=== PATIENT | male | born 1975 ===

== ENCOUNTER 2017-01-20 07:40 | Emergency (ER) | payer OTHER ==
[2017-01-20 08:03] VITALS: BMI 25.0
[2017-01-20] MEDS ORDERED: Sodium Chloride 0.9% 1,000 ML IV STA ×2 (08:03→10:57)
[2017-01-20 08:44] LABS: BASO % 0.3 % (0.0-2.0); EOS # 0.1 K/uL (0.0-0.7); EOS % 1.2 % (0.0-4.0); HEMATOCRIT 47.4 % (35.0-51.0); LYMPH # 1.6 K/uL (1.0-4.3); LYMPH % 21.1 % (20.0-40.0); MEAN CELL VOLUME 87.9 fl (80.0-94.0); MEAN CORPUSCULAR HEMOGLOBIN 29.4 pg (27.0-31.0); MEAN CORPUSCULAR HGB CONC 33.5 g/dL (33.0-37.0); MONO # 0.4 K/uL (0.0-0.8); MONO % 5.3 % (0.0-10.0); NEUT # 5.5 K/uL (1.8-7.0); NEUT % 72.1 % (50.0-75.0); RED CELL DISTRIBUTION WIDTH 14.3 % (11.5-14.5); WHITE BLOOD COUNT 7.6 K/uL (4.8-10.8)
[2017-01-20 08:51] LABS: ALB/GLOB RATIO 1.4 (1.0-2.1); ALKALINE PHOSPHATASE 44 U/L (38-126); ALT/SGPT 47 U/L (21-72); AST/SGOT 34 U/L (17-59); BILIRUBIN,TOTAL 0.7 mg/dl (0.2-1.3); BLOOD UREA NITROGEN 20 mg/dl (9-20); CALCIUM 9.4 mg/dL (8.4-10.2); CARBON DIOXIDE 29 mmol/L (22-30); CHLORIDE 104 mmol/L (98-107); GFR AFRICAN-AMERICAN > 60; GLUCOSE,RANDOM 118 mg/dL (75-110); POTASSIUM 4.9 MMOL/L (3.6-5.0); SODIUM 143 mmol/l (132-148)
[2017-01-20 09:30] LABS: RBC URINE 1 /hpf (0-3); WBC URINE < 1 /hpf (0-5)
[2017-01-20 09:33] LABS: URINE BILIRUBIN NEGATIVE (NEGATIVE); URINE COLOR LIGHT YELLOW (YELLOW); URINE GLUCOSE (UA) NEGATIVE (Normal); URINE KETONE NEGATIVE (NEGATIVE)
[2017-01-20 09:34] LABS: PH,URINE 7.5 (5.0-8.0); URINE BLOOD NEGATIVE (NEGATIVE); URINE LEUKOCYTE ESTERASE NEGATIVE Leu/uL (Negative); URINE PROTEIN NEGATIVE (NEGATIVE); URINE UROBILINOGEN 0.2 mg/dL (0.2-1.0)
[2017-01-20 10:44] VITALS: TEMP 97; O2SAT 100
--- NOTE | 2017-01-20 10:51 | CT ---
PROCEDURE: CT Abdomen and Pelvis without intravenous contrast HISTORY: R flank RLQ pain COMPARISON: Helical CT of the abdomen and pelvis was performed without oral or intravenous contrast as per referring physician request. TECHNIQUE: Technique. Contrast Dose: None Radiation dose: Total exam DLP = 1076.81 mGy-cm. This CT exam was performed using one or more of the following dose reduction techniques: Automated exposure control, adjustment of the mA and/or kV according to patient size, and/or use of iterative reconstruction technique. FINDINGS: LOWER THORAX: Small hiatal hernia is appreciated with the lung bases otherwise unremarkable. LIVER: A tiny sub cm lucency is seen at the left lobe liver too small to characterize. GALLBLADDER AND BILE DUCTS: Unremarkable. PANCREAS: Unremarkable. No gross lesion or ductal dilatation. SPLEEN: Unremarkable. ADRENALS: Unremarkable. No mass. KIDNEYS AND URETERS: A 2.5 mm calculus obstructs the right ureteropelvic junction/distal right ureter causing limited right perirenal reaction a mild right hydroureteronephrosis. A punctate nonobstructing intrarenal calculus is seen at the lower pole right kidney. No obstructive uropathy left kidney although punctate intrarenal calcified at the midpole left kidney. There is also a the 2.5 cm simple cyst at the upper pole left kidney. VASCULATURE: Unremarkable. No aortic aneurysm. BOWEL: Unremarkable. No obstruction. No gross mural thickening. APPENDIX: Unremarkable. Normal appendix. PERITONEUM: Unremarkable. No free fluid. No free air. LYMPH NODES: Unremarkable. No enlarged lymph nodes. BLADDER: Unremarkable. REPRODUCTIVE: Unremarkable. BONES: No acute fracture. OTHER FINDINGS: None. IMPRESSION: A 2.5 mm calculus obstructs the right ureteropelvic junction/distal right ureter causing limited right appearing perirenal reaction a mild right hydroureteronephrosis. Solitary punctate intrarenal calculi identified bilaterally, nonobstructive, as discussed above. Lesser findings as discussed above.
[2017-01-20] MEDS ORDERED: Morphine 4 MG/ML VIAL ONE (11:06)
[2017-01-20] MEDS ORDERED: Lidocaine 150 MG in Sodium Chloride 0.9% 100 ML IV STA (11:38)
--- NOTE | 2017-01-20 14:33 | ED PDOC ---
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 denies: Diarrhea Exacerbating Factors: None Alleviating Factors: None Additional Complaint(s): 41yo male hx renal colic many years ago presents w sudden onset R flank pain radiating to R groin and abdomen sudden onset around 6am this morning. Denies fever, hematuria, prior nausea/vomiting/diarrhea or other complaint. Past Medical History Reviewed: Historical Data, Nursing Documentation, Vital Signs Vital Signs: Last Vital Signs Temp 97 F L 01/20/17 08:02 Pulse 64 01/20/17 12:54 Resp 14 01/20/17 12:54 BP 154/94 H 01/20/17 12:54 Pulse Ox 100 01/20/17 12:54 - Medical History PMH: Kidney Stones - Surgical History Surgical History: No Surg Hx - Family History Family History: States: Unknown Family Hx - Living Arrangements Living Arrangements: With Family - Social History Current smoker - smoking cessation education provided: No - Home Medications Home Medications: Ambulatory Orders Medication Instructions Recorded Ibuprofen [Motrin Tab] 600 mg PO Q6 PRN #15 tab 01/20/17 Tamsulosin [Flomax] 0.4 mg PO DAILY #3 cap 01/20/17 oxyCODONE/Acetaminophen [Percocet 1 ea PO Q6 PRN #8 tab 01/20/17 5/325 mg Tab] - Allergies Allergies/Adverse Reactions: Allergies Allergy/AdvReac Type Severity Reaction Status Date / Time No Known Allergies Allergy Verified 01/20/17 08:02 Review of Systems ROS Statement: Except As Marked, All Systems Reviewed And Found Negative Constitutional: Negative for: Fever, Chills Respiratory: Negative for: Cough, Shortness of Breath Gastrointestinal: Positive for: Nausea, Abdominal Pain, Other (flank pain) Genitourinary Male: Negative for: Dysuria Musculoskeletal: Negative for: Neck Pain, Shoulder Pain Skin: Negative for: Rash, Lesions, Jaundice Neurological: Negative for: Weakness, Numbness Psych: Negative for: Anxiety Physical Exam - Reviewed Nursing Documentation Reviewed: Yes Vital Signs Reviewed: Yes - Physical Exam Appears: Positive for: Non-toxic, Uncomfortable (pain) Head Exam: Positive for: ATRAUMATIC, NORMAL INSPECTION, NORMOCEPHALIC Skin: Positive for: Normal Color, Warm, DRY Eye Exam: Positive for: EOMI, Normal appearance, PERRL ENT: Positive for: Normal ENT Inspection Neck: Positive for: Normal, Painless ROM Cardiovascular/Chest: Positive for: Regular Rate, Rhythm Respiratory: Positive for: CNT, Normal Breath Sounds Gastrointestinal/Abdominal: Positive for: Bowel Sounds, Soft, Tenderness (mild R sided tenderness) Back: Positive for: R CVA Tenderness Extremity: Positive for: Normal ROM Neurologic/Psych: Positive for: Alert, Oriented. Negative for: Motor/Sensory Deficits - Laboratory Results Result Diagrams: 01/20/17 08:26 01/20/17 08:26 - ECG O2 Sat by Pulse Oximetry: 100 Medical Decision Making Medical Decision Making: workup for suspicious renal colic initiated analgesics, IVF ordered, labs/CT abd pelv without contrast ordered Accession No. : [id number] Patient Name / ID : ILIANA WELLER / [id number] Exam Date : 01/20/2017 11:42:34 ( Approved ) Study Comment : Sex / Age : M / 40Y Creator : Yusef Owusu MD Dictator : Yusef Owusu MD Meat Grader : Stone Crusher Operator : Yusef Owusu MD Approver2 : Report Date : 01/20/2017 12:37:24 My Comment : PROCEDURE: CT Abdomen and Pelvis with contrast HISTORY: abdominal pain hx cirrhosis COMPARISON: Abdomen and pelvis CT with contrast 12/17/2016. TECHNIQUE: Contrast dose: Omnipaque 300, 95 cc Radiation dose: Total exam DLP = 1124.02 mGy-cm. This CT exam was performed using one or more of the following dose reduction techniques: Automated exposure control, adjustment of the mA and/or kV according to patient size, and/or use of iterative reconstruction technique. FINDINGS: LOWER THORAX: Calcified granulomata again seen the left base and right middle lobe as well. Trace of pleural effusion is noted causing minimal compression atelectasis and bilateral gynecomastia is identified. LIVER: A nodular cirrhotic liver is inhomogeneous enhancing once again without definable underlying lesion appreciable grossly. Bilateral renal, gastrohepatic ligament and recannulized umbilical vein varices are again identified again indicating hepatofugal blood flow. GALLBLADDER AND BILE DUCTS: Grossly dilated. No radiodense cholelithiasis or prominent mural thickening. PANCREAS: Unremarkable. No gross lesion or ductal dilatation. SPLEEN: Splenomegaly is again appreciated without focal mass measuring up to 16.0 cm. ADRENALS: Unremarkable. No mass. KIDNEYS AND URETERS: Unremarkable. No hydronephrosis. No solid mass. VASCULATURE: Unremarkable. No aortic aneurysm. BOWEL: Unremarkable. No obstruction. No gross mural thickening. APPENDIX: Normal appendix. PERITONEUM: Unremarkable. No free fluid. No free air. LYMPH NODES: Unremarkable. No enlarged lymph nodes. BLADDER: Unremarkable. REPRODUCTIVE: Unremarkable. BONES: No acute fracture. OTHER FINDINGS: Persistent anasarca. IMPRESSION: 1. Nonspecific incidental ascites is now mild throughout the abdomen and pelvis , potentially a function of limited change in dynamics of hepatofugal blood flow though this is not definite. Further clinical correlation is advised. No free intrarenal casts, bowel or urinary tract obstruction appreciable. 2. Cirrhotic liver with hepatofugal blood flow and numerous varices again identified. 3. Splenomegaly to 16 cm likely related to impression 2. 4. Interval trace left pleural effusion and compressive atelectasis left base. labs reviewed and unremarkable Required repeat dosing analgesics and IV lidocaine 155p re-eval improved, pain minimal, sleeping. 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 DC from ED, followup urology, encourage PO fluids, Rx flomax, patel , percocet #8 for breakthrough pain Disposition - Clinical Impression Clinical Impression: Nephrolithiasis - Patient ED Disposition Is Patient to be Admitted: No Counseled Patient/Family Regarding: Studies Performed, Diagnosis, Need For Followup, Rx Given - Disposition Referrals: FAMILY PROVIDER,NO [Primary Care Provider] - Bakari Cuenca MD [Staff Provider] - Disposition: Routine/Home Disposition Time: 14:01 Condition: STABLE Additional Instructions: Take medication as directed. Return to ER for any worse pain, fever, urinating blood, or any concern. Stay well hydrated. Prescriptions: Ibuprofen [Motrin Tab] 600 mg PO Q6 PRN #15 tab PRN Reason: Pain, Moderate (4-7) oxyCODONE/Acetaminophen [Percocet 5/325 mg Tab] 1 ea PO Q6 PRN #8 tab PRN Reason: Pain, Severe (8-10) Tamsulosin [Flomax] 0.4 mg PO DAILY #3 cap Instructions: Renal Colic (ED) Forms: [facility] (Dutch) Print Language: FRENCH
[2017-01-20 15:12] VITALS: BP 155/81; PULSE 68; RESP 16
== END 2017-01-20 15:13 | disposition home or self-care (01) ==
LOC: H.ER 07:40
DX: N13.2 Hydronephrosis with renal and ureteral calculous obstruction (principal); K74.60 Unspecified cirrhosis of liver; R18.8 Other ascites
CPT/HCPCS: 74176; 80053; 81003; 85025; 99284; J1885; J2001; J2270; J7040